=== PATIENT | male | born 1970 | race Caucasian/White ===

== ENCOUNTER 2017-07-28 08:21 | Inpatient (IN) | payer MEDICAID ==
[~2017-07-28 08:21] MED LIST: ASPIRIN EC 325 MG TAB PO ONE; DIAZEPAM 5 MG TAB PO ONE; FAMOTIDINE 20 MG TAB PO ONE; NS 1,000 ML IV ONE; diphenhydrAMINE 25 MG CAP PO ONE
--- NOTE | 2017-07-28 08:49 | CPEKG ---
Heart Rate: 71 RR Interval: 845 P-R Interval: 168 QRSD Interval: 102 QT Interval: 420 QTC Interval: 457 P [place]: 76 QRS [place]: 60 T Wave [place]: 70 EKG Severity - ABNORMAL ECG - EKG Impression: SINUS RHYTHM EKG Impression: VENTRICULAR PREMATURE COMPLEX EKG Impression: LEFT VENTRICULAR HYPERTROPHY EKG Impression: BORDERLINE INFERIOR Q WAVES Electronically Signed By: Ken Mendoza 28-Jul-2017 09:44:20
[2017-07-28] MEDS ORDERED: FAMOTIDINE 20 MG TAB ONE (09:12)
[2017-07-28] MEDS ORDERED: diphenhydrAMINE 25 MG CAP PO ONE (09:12)
[2017-07-28] MEDS ORDERED: ASPIRIN EC 325 MG TAB PO ONE (09:12)
[2017-07-28] MEDS ORDERED: DIAZEPAM 5 MG TAB ONE (09:13)
[2017-07-28 09:17] LABS: PLATELET COUNT 257 10^3/uL (150-400)
[2017-07-28 09:27] LABS: INR 1.06 (0.83-1.16)
[2017-07-28] MEDS ORDERED: LIDOCAINE 1% 300 MG/30 ML SDV ONE (09:29)
[2017-07-28] MEDS ORDERED: fentaNYL 100 MCG/2 ML INJ ONE (09:30)
[2017-07-28] MEDS ORDERED: MIDAZOLAM 2 MG/2 ML VIAL ONE (09:30)
[2017-07-28] MEDS ORDERED: IOPAMIDOL (ISOVUE-370) 150 ML BTL IV ONE ×2 (09:31→11:01)
--- NOTE | 2017-07-28 09:34 | PDGENHP ---
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 Depression. Coronary artery disease as above. Gout. Hypertension. Hyperlipidemia. Restless leg syndrome. Relevant Physical Exam: Blood pressure 110/70 heart rate 60. No JVP at 90 degrees. Chest was clear to auscultation percussion. Cardiac exam revealed a regular rate and rhythm. Palpable thrill right forearm. Absent left radial artery pulse. +2 left radial pulse. +2 right and left femoral artery pulse. No peripheral edema. Alert and oriented without facial droop. No focal neurologic findings. Cardiorespiratory Assessment: Severe coronary disease status post 6 vessel bypass grafting in 2013 including a OLIVARES, free radial artery graft based on examination here for risk stratification prior to surgery.
--- NOTE | 2017-07-28 09:35 | PDPROPOC ---
Sedation Plan of Care Sedation Plan of Care: vital signs stable, mental status noted, patient educated of risks, benefits, alternatives, patient can tolerate sedation ASA Classification: ASA 2 Planned drugs: fentanyl, midazolam Mallampati Score: Class 1 Mallampati Reference Image: Patient passed 3-3-2 rule?: Yes
--- NOTE | 2017-07-28 11:18 | PDDXCAT ---
Diagnostic Cath Note - . Date: 07/28/17 Industrial Designer: Reji Indication: other (Moderate abnormal stress test with inferior scar, reduced LV function, preoperative assessment) - Procedure Access: right groin Procedure: left heart catheterization, coronary angiography, left ventriculogram , vein graft injection, OLIVARES injection - Materials Left Heart Cath size: 6F Left Heart Cath materials: JL4.0, JR4.0, COTY, pigtail, other (AR1) - Findings-Left Heart Catheterization LM: 40% distal stenosis LAD: 100% occluded after principal diagonal LCX: Obtuse marginal branch is 100% occluded. Diffuse luminal irregularities without focal stenosis around the AV groove. Collaterals to the distal right coronary RCA: 100% occluded at the origin with right to right bridging collaterals rSVG: Patent to the distal right coronary, patent to obtuse marginal 1 and 2. 2 occluded occluded grafts OLIVARES: Patent to a small LAD. LVEF: 20 mm of mercury Wall motion: Not assessed, aortic root showed patent vein graft to the inferior lateral wall with a patent mammary artery. Complications: None Estimated blood loss: <50ml Closure method: Angioseal Assessment: 1.Severe multivessel coronary artery disease. 2. Complete revascularization with patent mammary artery to the LAD, patent vein graft to the lateral and inferior owen. 3. Elevated filling pressures in the setting of renal insufficiency. 4. No contraindications to surgery identified by today' s study. Plan: Continued medical therapy. End-stage renal disease to be managed by the Nephrology Service with dialysis tomorrow. Patient was medicated with 2 mg Versed, 100 mcg of fentanyl, 25 mg of Benadryl I V. He received 125 cc of IV contrast.
[2017-07-28] MEDS ORDERED: LORazepam 0.5 MG TAB PO PRN (11:42)
[2017-07-28] MEDS ORDERED: HYDROCODONE/APAP 5/325 TAB PO PRN (11:42)
[2017-07-28] MEDS ORDERED: SEVELAMER CARBONATE 2.4 GM PO SCH (12:00)
[2017-07-28] MEDS ORDERED: SEVELAMER HCL 800 MG TAB PO SCH (12:00)
--- NOTE | 2017-07-28 15:19 | SOAPPROG ---
ZBIGNIEW Progress Note Assessment/Plan: Assessment/Plan: 47 Y M multiple comorbidities including CAD, ESRD on HD. Asked to see patient re: secondary hyperparathyroidism and need for subtotal parathyroidectomy. S/p heart catheterization. Patient known to us from prior visit in clinic. Asked to see by renal regarding parathyroid disease. Plan for HD tomorrow. Then, likely subtotal parathyroidectomy on . Discussed risks and options in the past. Spoke with today but patient quite sleepy after procedure so will need to return to discuss further. D/w'ed Dr. Amaya. 07/28/17 15:14 Objective: Vital Signs Temp Pulse Resp BP Pulse Ox 35.9 C L 74 11 L 122/72 H 80 L 07/28/17 15:11 07/28/17 15:11 07/28/17 15:11 07/28/17 15:11 07/28/17 15:11 Laboratory Results 07/28/17 09:10 07/28/17 09:10 PT 14.0 SEC (12.0-15.0) 07/28/17 09:10 INR 1.06 (0.83-1.16) 07/28/17 09:10 ICD10 Worksheet Patient Problems: Problems Problem Status Onset Abnormal exercise myocardial perfusion study Acute Coronary artery disease Acute ESRD (end stage renal disease) on dialysis Acute Status post six vessel coronary artery bypass graft Acute
[2017-07-28] MEDS: SEVELAMER CARBONATE PO SCH ×2 (16:09→19:04)
[2017-07-28] MEDS: PRAMIPEXOLE 0.125 MG TAB PO SCH ×2 (16:42→22:39)
[2017-07-28] MEDS: FUROSEMIDE 80 MG TAB PO SCH (16:42)
[2017-07-28] MEDS: CARVEDILOL 25 MG TAB PO SCH (19:04)
--- NOTE | 2017-07-28 19:32 | GHP ---
[f rep st] HISTORY AND PHYSICAL DATE OF ADMISSION: 07/28/2017 CHIEF COMPLAINT: Needs surgery. 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 The patie nt has secondary hyperparathyroid related to his end-stage renal disease, and there is a plan for tony gical parathyroidectomy in the coming days. Given patient's history of severe CAD, he was brought in for preop cardiac clearance, and underwent cardiac catheterization earlier in the day today. At the time of my evaluation, patient is quite somnolent, though his is present and was able to provid e some of the history. The patient has not had any acute complaints recently, per her report. She i s concerned that he will not want to remain in the hospital for too long, but did agree that they wou ld prefer to stay in the hospital to get surgery completed, rather than have to come back as an outpa tient. PAST MEDICAL HISTORY: 1. End-stage renal disease secondary to IgA nephropathy. 2. Severe multivessel coronary artery disease. 3. Depression. 4. Gout. 5. Hypertension. 6. Hyperlipidemia. PAST SURGICAL HISTORY: 1. CABG x6. 2. Fistula formation. SOCIAL HISTORY: Patient is accompanied by his . He is a nonsmoker. FAMILY HISTORY: This is not available, given this patient's somnolence, and is not available per [facility] rt review. REVIEW OF SYSTEMS: Per patient's , this was negative prior to his catheterization but, again, th e patient is quite somnolent post catheterization. MEDICATIONS: 1. Amlodipine. 2. Carvedilol. 3. Atorvastatin. 4. Aspirin. 5. Losartan. 6. Lorazepam. 7. [place]. 8. Lasix. 9. Pyridoxine. 10. Pramipexole. 11. Paroxetine. 12. Sevelamer. 13. Cinacalcet. 14. Calcitriol. 15. Labetalol. ALLERGIES: Include lisinopril. PHYSICAL EXAMINATION: VITAL SIGNS: BP 140/75, heart rate 71, respiratory rate 16, O2 saturation 97% on 3 L, temperature is 36.6. GENERAL APPEARANCE: This is a well-developed, well-nourished man. He is somnolent, but easily arousable. EYES: Anicteric. HENT: Oropharynx clear. CARDIOVASCULAR: Regular rate and rhythm. No MRG. PULMONARY: CTA bilater ally to anterior exam. ABDOMEN: Soft, nontender. Positive bowel sounds. EXTREMITIES: No clubbing , cyanosis, or edema. There is a right upper extremity fistula with bruit and palpable thrill. SKIN: Warm, dry, well perfused. NEURO/PSYCH: Oriented appropriate, pleasant. CLINICAL DATA: Labs notable for hemoglobin of 10, hematocrit of 29.8. Coags are unremarkable. Chem istries notable for a creatinine of 9.7. ASSESSMENT AND PLAN: This is a 47-year-old man with past medical history of end-stage renal disease and severe coronary artery disease, presenting for preop management for planned parathyroidectomy. 1. Secondary hyperparathyroidism. Again, the patient is planned for parathyroidectomy, likely to be performed on . He has been brought into the hospital for preop evaluation, including cardia c clearance. Catheterization went well, with severe multivessel disease, but also noted for complete revascularization and patent mammary artery graft to the LAD. Usual medications will be continued. Appreciate Cardiology involvement. 2. End-stage renal disease. He will be continued on his usual dialysis regimen, including hemodialy sis to be performed in-house tomorrow. His other medications will be continued. Dr. Muñoz is aw are of his hospitalization, and will follow while in house. 3. Severe coronary artery disease. As per above. Continue his usual medications. 4. Hypertension. This is currently reasonably well controlled. We will continue his home medicatio ns that include amlodipine, labetalol, carvedilol, losartan, and Lasix, as well as fluid management v ia hemodialysis. 5. Hyperlipidemia. The patient is on atorvastatin. Lipid panel obtained here notable for an LDL of 178. DISPOSITION: Inpatient status. Given need for surgical intervention, patient will require greater t ambriz a 48-hour stay. The patient is new to my care. Old records reviewed and summarized as per HPI and past medical histo ry. Further history obtained from patient's , present at bedside. Care plan reviewed with Merrick nunoogjovita, including plans for Medicine to take over as primary. /[id number]/MODL
[2017-07-28] MEDS: LABETALOL HCL 200 MG TAB PO SCH (22:40)
[2017-07-29 04:42] LABS: PLATELET COUNT 259 10^3/uL (150-400)
[2017-07-29] MEDS ORDERED: NON-FORMULARY NEW DRUG (Paroxetine Hcl [Paxil] 40 MG) PO SCH (09:00)
[2017-07-29] MEDS ORDERED: ASPIRIN 81 MG CHEWABLE TAB PO SCH (09:00)
[2017-07-29] MEDS ORDERED: CALCITRIOL 0.25 MCG CAP PO SCH (09:00)
[2017-07-29] MEDS ORDERED: NON-FORMULARY NEW DRUG (Losartan Potassium [Losartan Potassium] 100 MG) PO SCH (09:00)
[2017-07-29] MEDS ORDERED: CINACALCET HCL 30 MG TAB PO SCH (09:00)
[2017-07-29] MEDS ORDERED: CINACALCET HCL 60 MG PO SCH (09:00)
--- NOTE | 2017-07-29 09:23 | SOAPPROG ---
ZBIGNIEW Progress Note Assessment/Plan: Assessment: 1. ESRD K High. He does have this chronically. Tele looks ok. HD today using catheter. 2. Hyperparathyroidism For 3.5/4 parathyroidectomy. Expect significant hungry bone syndrome, and he will likely need IV calcium drip for some days postop. He has been getting calcitriol as an outpatient. He will need to go on a calcium drip immediately post op. I reviewed anti platelet meds with Dr. Mendoza and Dr. Amaya. They are being held. 3. Social Issues Patient is homeless. Will review with case management. Plan: 07/29/17 09:16 07/29/17 09:23 Subjective: No complaints Objective: Vital Signs Temp Pulse Resp BP Pulse Ox 36.6 C 63 13 132/72 H 96 07/29/17 07:59 07/29/17 07:59 07/29/17 07:59 07/29/17 07:59 07/29/17 07:59 Laboratory Results 07/29/17 03:35 07/29/17 03:35 07/28/17 07/29/17 07/30/17 05:59 05:59 05:59 Intake Total 1150 Balance 1150 PT 14.0 SEC (12.0-15.0) 07/28/17 09:10 INR 1.06 (0.83-1.16) 07/28/17 09:10 Physical Exam - Physical Exam General Appearance: no apparent distress Respiratory: lungs clear Cardiac/Chest: regular rate, rhythm, systolic murmur Extremities: normal inspection Neuro/Psych: alert, oriented x 3 ICD10 Worksheet Patient Problems: Problems Problem Status Onset Abnormal exercise myocardial perfusion study Acute Coronary artery disease Acute ESRD (end stage renal disease) on dialysis Acute Status post six vessel coronary artery bypass graft Acute
--- NOTE | 2017-07-29 10:10 | PDMN ---
Medical Necessity Medical necessity: change to IP; los>2mn for secondary hyperparathyroidism r/t ESRD; admit for cardiac clearance and parathyroidectomy, HD; other comorbidities: CAD s/p CABG x 6, HTN, HLD, gout and depression; per order and hospitalist H&P 07/28/17
[2017-07-29] MEDS: CARVEDILOL 25 MG TAB PO SCH ×2 (10:39→19:19)
[2017-07-29] MEDS: CALCITRIOL 0.25 MCG CAP PO SCH ×2 (10:39→21:33)
[2017-07-29] MEDS: LABETALOL HCL 200 MG TAB PO SCH ×2 (10:40→21:33)
[2017-07-29] MEDS: PRAMIPEXOLE 0.125 MG TAB PO SCH ×3 (10:40→21:33)
[2017-07-29] MEDS: LOSARTAN POTASSIUM 50 MG TAB PO SCH (10:40)
[2017-07-29] MEDS: FUROSEMIDE 80 MG TAB PO SCH ×2 (10:40→16:43)
[2017-07-29] MEDS: PARoxetine HCL 20 MG TAB PO SCH (10:41)
[2017-07-29] MEDS: ATORVASTATIN CALCIUM 40 MG TAB PO SCH (10:41)
[2017-07-29] MEDS: PYRIDOXINE HCL 100 MG TAB PO SCH (10:41)
[2017-07-29] MEDS: SEVELAMER CARBONATE PO SCH ×3 (10:42→18:34)
--- NOTE | 2017-07-29 13:10 | PDCARPN ---
Cardiology Progress Note Chief Complaint: Patient reports fatigue, but has no cardiovascular complaints. Assessment/Plan: Assessment: 47-year-old male with past history of CAD, with previous bypass surgery 6 vessels in 2013 at [facility], end-stage renal disease with IgA neuropathy , hypertension, hyperlipidemia who recently discovered hyperparathyroidism, with plan of parathyroidectomy. Pre cardiac surgical evaluation did show ischemia off of the stress testing. Patient underwent cardiac catheterization with Dr. Mendoza yesterday. Showing severe multivessel disease with complete revascularization with patent OLIVARES to the LAD, patent SVGs to lateral inferior owen. Is felt there was no cardiac contraindication for him to proceed with his upcoming surgery. Today: Patient reporting no episodes of chest pain, shortness of breath, or symptoms suggesting of ischemia. He has remained in sinus rhythm with no malignant arrhythmias or pauses overnight. Noted to have a potassium of 6.4 today. Creatinine of 11.4 Plan: 1. CAD: Recent catheterization showing total revascularization with grafts. No cardiac contraindication for patient proceed with this necessary nonvascular , non thoracic surgery. His aspirin therapy is being held. Patient recommended to take beta-irving all way up today surgery. Patient is on secondary risk prevention with atorvastatin. 2. End-stage renal disease: Patient's potassium level noted to be 6.4 today. He has been seen by Dr. Muñoz of Nephrology. He is scheduled to undergo hemodialysis today. No arrhythmias noted. 3. Hyperparathyroidism: Plan on parathyroidectomy to be done by Dr. Amaya tomorrow. 4. Hypertension: Patient's blood pressure appears to be well controlled on home medication regime. No changes at this time. Will defer to Nephrology with consideration of discontinuing losartan due to patient's hyperkalemia. 5. Hyperlipidemia: Patient on atorvastatin for secondary risk prevention. Appreciate Dr. Tate and hospitalist services assuming to be primary admission providers 07/29/17 13:07 Subjective: Patient reports no chest pain or pressure. Reports no shortness of breath. Denies of any palpitations, lightheadedness, orthopnea, PND, near-syncope or syncopal events. Reviewed/Discussed With: hospitalist (Dr Irby), other (Dr Isaacs) Objective: Vital Signs (8 Hrs) Temp Pulse Resp BP Pulse Ox 07/29/17 11:26 36.7 C 73 13 124/71 H 98 05/09/18 07:59 36.6 C 63 13 132/72 H 96 Intake/Output (24 Hrs) 07/28/17 07/29/17 07/30/17 05:59 05:59 05:59 Intake Total 1150 750 Balance 1150 750 Intake: Oral (ml) 1000 750 IV Intake (ml) 150 Other: Weight 78.3 kg Result Diagrams: 07/29/17 03:35 07/29/17 03:35 - Physical Exam Constitutional: WDWN, no apparent distress Ears, Nose, Mouth, Throat: moist mucous membranes Cardiovascular: regular rate and rhythm, jugular vein distention (5-6 Cm above sternal notch.), pulses symmetric bilat Peripheral Pulses: 1+: dorsalis-pedis (R), dorsalis-pedis (L), 2+: carotid (R), carotid (L) Respiratory: other ( Diminished in bases, no rhonchi, rales, or wheezing noted. No accessary muscle use, no intercostal muscle retraction noted) Gastrointestinal: normoactive bowel sounds Skin: warm, other ( right groin site, catheter insertion site, with no redness, swelling, drainage, ecchymosis, or hematoma. No auscultated bruit over site.), No no edema ( +1 peripheral edema bilateral lower extremities to knees) Psychiatric: cooperative, following commands ICD10 Worksheet Patient Problems: Problems Problem Status Onset ESRD (end stage renal disease) on dialysis Acute Abnormal exercise myocardial perfusion study Acute Status post six vessel coronary artery bypass graft Acute Coronary artery disease Acute
--- NOTE | 2017-07-29 16:14 | HOSPPROG ---
Hospitalist Progress Note Assessment/Plan: 47 yo F w esrd here for pre surgery cath. cad: cath w patent OLIVARES- LAD per cardiology, no contraindication to surgery esrd: HD today hyperkalemia: HD today hyperparathyroidism: parathyroidectomy tomorrow w dr friedman dispo: inpt Subjective: case d/w dr cunningham Objective: Vital Signs Temp Pulse Resp BP Pulse Ox 36.7 C 73 13 124/71 H 98 07/29/17 11:26 07/29/17 11:26 07/29/17 11:26 07/29/17 11:26 07/29/17 11:26 Laboratory Results 07/29/17 03:35 07/29/17 03:35 07/28/17 07/29/17 07/30/17 05:59 05:59 05:59 Intake Total 1150 750 Balance 1150 750 PT 14.0 SEC (12.0-15.0) 07/28/17 09:10 INR 1.06 (0.83-1.16) 07/28/17 09:10 - Physical Exam Constitutional: no apparent distress, appears nourished Eyes: PERRL, anicteric sclera Ears, Nose, Mouth, Throat: moist mucous membranes, hearing normal Cardiovascular: regular rate and rhythym, no murmur, rub, or gallop Respiratory: no respiratory distress, no rales or rhonchi Gastrointestinal: normoactive bowel sounds, soft, non-tender abdomen Genitourinary: no bladder fullness, No diop in urethra Skin: warm, normal color Musculoskeletal: full muscle strength Neurologic: AAOx3 ICD10 Worksheet Patient Problems: Problems Problem Status Onset Abnormal exercise myocardial perfusion study Acute Coronary artery disease Acute ESRD (end stage renal disease) on dialysis Acute Status post six vessel coronary artery bypass graft Acute
--- NOTE | 2017-07-29 16:44 | ASMTCASEMG ---
Living Arrangements What is your living Answers: With Spouse arrangement? Who do you live with? Type Of Residence What kind of residence do Answers: Apartment you live in? Discharge Plan Comments Coordination Status Comments Notes: CM spoke w/ Dr. Muñoz and Ankita regarding d/c POC. Pt is having a parathyoidectomy tomorrow. Pt had a CATH yesterday. PT has been ordered and awaiting recommendations. [facility] in [place]. CM to follow up with Kelly, his delinquency prevention social worker (P#: [phone]). CM to follow. Plan: TBD Date Signed: 07/29/2017 04:44 PM Electronically Signed By:SYLVIA Fritz
[2017-07-29] MEDS ORDERED: HEPARIN 50,000 UNIT/10 ML VIAL ONE (19:03)
[2017-07-30 04:13] LABS: PLATELET COUNT 254 10^3/uL (150-400)
[2017-07-30] MEDS ORDERED: ceFAZolin 2 GM/SWFI 2 GM/20 ML SYR IVP ONE ×2 (06:00→08:15)
[2017-07-30] MEDS ORDERED: THROMBIN (BOVINE) 5,000 UNIT VIAL TP ONE (07:19)
[2017-07-30] MEDS ORDERED: BACITRACIN ZINC 14.2 GM OINTTUBE TP ONE (07:19)
[2017-07-30] MEDS ORDERED: BUPIVACAINE 0.5% 30 ML SDV ONE (07:20)
[2017-07-30] MEDS ORDERED: EPINEPHrine 1 MG/ML INJ ONE (07:20)
[2017-07-30] MEDS ORDERED: fentaNYL 100 MCG/2 ML INJ ONE ×2 (07:55→08:57)
[2017-07-30] MEDS ORDERED: PROPOFOL 200 MG/20 ML VIAL ONE (07:55)
[2017-07-30] MEDS ORDERED: MIDAZOLAM 2 MG/2 ML VIAL ONE ×2 (07:55)
[2017-07-30] MEDS ORDERED: ALBUMIN 5% 250 ML BOTTLE IV ONE (08:01)
[2017-07-30] MEDS ORDERED: CISATRACURIUM BESYLATE 20 MG/10 ML VIAL IV ONE (08:38)
[2017-07-30] MEDS ORDERED: LIDOCAINE HCL 160 MG/4 ML LTA KIT TP ONE (08:38)
[2017-07-30] MEDS ORDERED: SUGAMMADEX SODIUM 200 MG/2 ML VIAL IVP ONE (08:38)
[2017-07-30] MEDS ORDERED: LIDOCAINE 2% 5 ML SDV ONE (08:38)
[2017-07-30] MEDS ORDERED: VASOPRESSIN 20 UNIT/ML VIAL ONE ×2 (08:38→09:09)
[2017-07-30] MEDS ORDERED: ONDANSETRON 4 MG/2 ML VIAL ONE (08:38)
--- NOTE | 2017-07-30 08:43 | PDANEPAE ---
ANE Past Medical History - Pulmonary History Hx Oxygen in Use at Home: No Hx Sleep Apnea: No Sleep Apnea Screening Result - Last Documented: Positive ANE Review of Systems Review of Systems: ANE Patient History - Allergies Allergies/Adverse Reactions: lisinopril Allergy (Severe, Verified 07/27/17 15:15) Swelling/neck,face,throat - Home Medications Home Medications: Aspirin [Aspirin 81mg (*)] 81 mg PO DAILY 07/27/17 [Last Taken 07/27/17 07:00] Atorvastatin Calcium [Lipitor 40 mg (*)] 40 mg PO DAILY 07/27/17 [Last Taken 10/07 07:00] Calcitriol [Calcitriol (*)] 0.5 mcg PO MOWEFR 07/27/17 [Last Taken 07/27/17 08: 00] Carvedilol [Coreg (*)] 25 mg PO BIDMEAL 07/27/17 [Last Taken 07/27/17 21:00] Cinacalcet HCl [Sensipar] 60 mg PO DAILY 07/27/17 [Last Taken 07/27/17 21:00] Furosemide [Lasix 80 MG (*)] 80 mg PO BIDDIUR 07/27/17 [Last Taken 07/27/17 06: 30] Hydrocodone/APAP 5/325 [[place] 5/325 (*)] 1 tab PO Q6 PRN 07/27/17 [Last Taken 06:30] LORazepam [Ativan (*)] 0.5 mg PO DAILY PRN 07/27/17 [Last Taken 07/03/17 08:00] Labetalol HCl [Trandate 200 mg (*)] 200 mg PO BID 07/27/17 [Last Taken 07/28/17 07:30] Losartan Potassium 100 mg PO DAILY 07/27/17 [Last Taken 07/28/17 07:30] PARoxetine HCL [Paxil] 40 mg PO DAILY 07/27/17 [Last Taken 07/28/17 07:30] Pramipexole Di-HCl [Mirapex 0.125 mg (*)] 0.125 mg PO TID 07/27/17 [Last Taken 07/27/17 07:00] Pyridoxine HCl [Vitamin B-6 100 mg (*)] 100 mg PO DAILY 07/27/17 [Last Taken 10/07 07:00] Sevelamer Carbonate [Renvela] 2.4 gm PO TIDMEAL 07/27/17 [Last Taken 07/27/17 21 :00] amLODIPine BESYLATE [Norvasc 10 mg (*)] 10 mg PO DAILY 07/27/17 [Last Taken 11/07 07:30] - NPO status NPO Since - Liquids (Date): 07/30/17 NPO Since - Liquids (Time): 00:01 NPO Since - Solids (Date): 07/30/17 NPO Since - Solids (Time): 00:01 - Smoking Hx Smoking Status: Current every day smoker ANE Labs/Vital Signs - Labs Result Diagrams: 07/30/17 03:12 07/30/17 07:35 - Vital Signs Blood Pressure: 119/71 Heart Rate: 68 Respiratory Rate: 16 O2 Sat (%): 91 Height: 175 cm Weight: 74.4 kg ANE Physical Exam - Airway Neck exam: FROM Mallampati Score: Class 1 Mouth exam: poor dentition - Pulmonary Pulmonary: no rales or rhonchi, clear to auscultation - Cardiovascular Cardiovascular: regular rate and rhythym, no murmur, rub, or gallop - ASA Status ASA Status: IV ANE Anesthesia Plan Anesthesia Plan: general endotracheal anesthesia Lines/Monitors: additional IV
[2017-07-30] MEDS ORDERED: ALBUTEROL 3 ML DEYVIAL IH PRN (08:50)
[2017-07-30] MEDS ORDERED: ONDANSETRON 4 MG/2 ML VIAL IVP PRN (08:50)
[2017-07-30] MEDS ORDERED: NALOXONE HCL 0.4 MG/ML INJ IVP PRN (08:50)
--- NOTE | 2017-07-30 09:29 | SOAPPROG ---
ZBIGNIEW Progress Note Assessment/Plan: Assessment: (Patient in OR) 1. ESRD Next HD tomorrow. Will recheck K postoperatively. 2. Hyperparathyroidism For 3.5/4 parathyroidectomy today. He has been on calcitriol as outpatient, and received high doses yesterday. He will have hungry bone syndrome. He will need IV calcium drip and frequent checks post op. 3. Social Issues 4. HTN This has been at goal. Subjective: patient in or Objective: Vital Signs Temp Pulse Resp BP Pulse Ox 36.6 C 68 16 119/71 91 L 07/30/17 08:01 07/30/17 08:43 07/30/17 08:43 07/30/17 08:43 07/30/17 08:43 Laboratory Results 07/30/17 03:12 07/30/17 07:35 07/29/17 07/30/17 07/31/17 05:59 05:59 05:59 Intake Total 1150 1290 Output Total 2325 Balance 1150 -1035 PT 14.0 SEC (12.0-15.0) 07/28/17 09:10 INR 1.06 (0.83-1.16) 07/28/17 09:10 - Time Spent With Patient Time Spent With Patient: Patient in or ICD10 Worksheet Patient Problems: Problems Problem Status Onset Abnormal exercise myocardial perfusion study Acute Coronary artery disease Acute ESRD (end stage renal disease) on dialysis Acute Status post six vessel coronary artery bypass graft Acute
--- NOTE | 2017-07-30 10:05 | POSTOPPROG ---
Post Op Note Date of Operation: 07/30/17 Surgeon: Artie Amaya Endless Bed Drum Sander: Fiordaliza Anesthesiologist: Corine Anesthesia: GET(General Endotracheal) Pre-op Diagnosis: Secondary hyperparathyroidism Post-op Diagnosis: same Indication: same Procedure: Parathyroidectomy, R upper and lower poles, L lower and partial upper pole Findings: Enlarged parathyroid glands Inf/Abcess present in the surg proc area at time of surgery?: No Depth: Deep Incisional (Fascial) EBL: Minimal Specimen(s): 1. R upper pole 2. R lower pole 3 L lower pole 4. L partial upper pole
[2017-07-30] MEDS ORDERED: HYDROmorphONE/DILAUDID 1 MG/ML INJ IVP PRN (10:12)
[2017-07-30] MEDS ORDERED: HYDROmorphone HCL/NS 0.5 MG/ML SYR IVP PRN (10:13)
--- NOTE | 2017-07-30 10:18 | POSTANESTH ---
Post Anesthetic Evaluation Cardiovascular Status: Normal, Stable, Similar to Pre-Op Cond Respiratory Status: Normal, Stable, Similar to Pre-op Cond. Level of Consciousness/Mental Status: Can Participate in Eval Pain Control: Adequate, Prn Tx Ordered Nausea/Vomiting Control: Adequate, Prn Tx Ordered Complications Possibly Related to Anesthesia: None Noted
[2017-07-30] MEDS ORDERED: CALCIUM GLUCONATE 2 GM in D5W 50 ML IV ONE (11:27)
[2017-07-30] MEDS: SEVELAMER CARBONATE PO SCH ×3 (11:38→18:42)
--- NOTE | 2017-07-30 13:42 | HOSPPROG ---
Hospitalist Progress Note Assessment/Plan: 47 yo F w esrd here for pre surgery cath. cad: cath w patent OLIVARES- LAD per cardiology, no contraindication to surgery esrd: HD tomorrow hyperkalemia: HD tomorrow hyperparathyroidism: parathyroidectomy today calcimu supplementation started iCa at 6 pm dispo: inpt Subjective: case d/w dr friedman. parathyroidectomy today Objective: Vital Signs Temp Pulse Resp BP Pulse Ox 36.7 C 65 18 124/66 H 94 07/30/17 11:26 07/30/17 11:26 07/30/17 11:26 07/30/17 11:26 07/30/17 11:26 Laboratory Results 07/30/17 03:12 07/29/17 07/30/17 07/31/17 05:59 05:59 05:59 Intake Total 1150 1290 150 Output Total 2325 Balance 1150 -1035 150 PT 14.0 SEC (12.0-15.0) 07/28/17 09:10 INR 1.06 (0.83-1.16) 07/28/17 09:10 - Physical Exam Constitutional: no apparent distress, appears nourished Eyes: PERRL, anicteric sclera Ears, Nose, Mouth, Throat: moist mucous membranes, hearing normal, other ( incision c/d/i) Cardiovascular: regular rate and rhythym, no murmur, rub, or gallop Respiratory: no respiratory distress, no rales or rhonchi Gastrointestinal: normoactive bowel sounds, soft, non-tender abdomen Genitourinary: no bladder fullness, No diop in urethra Skin: warm, normal color Musculoskeletal: full muscle strength, no muscle tenderness Neurologic: AAOx3 Psychiatric: interacting appropriately Lymph, Heme, Immunologic: no cervical LAD ICD10 Worksheet Patient Problems: Problems Problem Status Onset Abnormal exercise myocardial perfusion study Acute Coronary artery disease Acute ESRD (end stage renal disease) on dialysis Acute Status post six vessel coronary artery bypass graft Acute
[2017-07-30] MEDS: CALCIUM GLUCONATE 10 GM in D5W 1,000 ML IV SCH (14:10)
[2017-07-30] MEDS: PYRIDOXINE HCL 100 MG TAB PO SCH (17:18)
[2017-07-30] MEDS: ATORVASTATIN CALCIUM 40 MG TAB PO SCH (17:20)
[2017-07-30] MEDS: PARoxetine HCL 20 MG TAB PO SCH (17:20)
[2017-07-30] MEDS: LOSARTAN POTASSIUM 50 MG TAB PO SCH (17:23)
[2017-07-30] MEDS: CARVEDILOL 25 MG TAB PO SCH ×2 (17:23)
[2017-07-30] MEDS: CALCITRIOL 0.25 MCG CAP PO SCH ×2 (17:24→21:13)
[2017-07-30] MEDS: LABETALOL HCL 200 MG TAB PO SCH ×2 (17:25→21:14)
[2017-07-30] MEDS: FUROSEMIDE 80 MG TAB PO SCH ×2 (17:25)
[2017-07-30] MEDS: PRAMIPEXOLE 0.125 MG TAB PO SCH ×3 (17:25→21:15)
[2017-07-31 04:25] LABS: PLATELET COUNT 217 10^3/uL (150-400)
--- NOTE | 2017-07-31 08:21 | SOAPPROG ---
[facility] Progress Note Assessment/Plan: Assessment: 1. ESRD- [facility] MWF -HD today- on 3Ca bath -using TDC- has AVF that is reportedly immature 2. Hyperparathyroidism -s/p 3.5/ parathyroidectomy 07/30 (Dr. Amaya) - He has been on calcitriol as outpatient and he will have hungry bone syndrome - will check iCA q6 hours. -high dose calcitriol and calcium gtt for now- I left parameters for RN to call , most recent ICa at goal (will check q6 hours for now- sooner if symptoms of numbness/tingling or begins to drop). Will likely start po calcium soon and try to wean off calcium gtt tomorrow. -his phos is high currently and using Ca Acetate binder- need to follow 3. HTN- good control 4. Anemia CKD -Hb at goal -Epo 10,000 units weekly- dose today 5. HyperK- K 5.6 -run 2k bath, low k diet when po 5. Difficult social situation Dr. Stewart medication coordinator for weekend Giulia Zurita MD [facility] [phone] 07/31/17 08:57 Subjective: Pt seen on dialysis at 08:35. Using RIJ TDC, 2K/3Ca bath, goal UF 2 kg. On calcium gtt. Denies numbness/tingling. Pain controlled. No sob, n/v. Objective: Vital Signs Temp Pulse Resp BP Pulse Ox 36.7 C 68 18 114/63 93 07/31/17 04:00 07/31/17 04:00 07/31/17 04:00 07/31/17 04:00 07/31/17 04:00 Laboratory Results 07/31/17 03:16 07/31/17 03:16 07/30/17 07/31/17 08/01/17 05:59 05:59 05:59 Intake Total 1290 1250 Output Total 2325 Balance -1035 1250 PT 14.0 SEC (12.0-15.0) 07/28/17 09:10 INR 1.06 (0.83-1.16) 07/28/17 09:10 Physical Exam - Physical Exam General Appearance: alert, no apparent distress EENT: other (mmm) Neck: supple, other (surgical incision c/d/i) Respiratory: lungs clear Cardiac/Chest: regular rate, rhythm Abdomen: normal bowel sounds, non-tender, soft Extremities: other (no edema) Neuro/Psych: alert, oriented x 3 ICD10 Worksheet Patient Problems: Problems Problem Status Onset Abnormal exercise myocardial perfusion study Acute Coronary artery disease Acute ESRD (end stage renal disease) on dialysis Acute Status post six vessel coronary artery bypass graft Acute
[2017-07-31] MEDS ORDERED: THROMBIN (BOVINE) 5,000 UNIT VIAL TP ONE (08:59)
[2017-07-31] MEDS ORDERED: THROMBIN (BOVINE) 20,000 UNIT SPRAY TP ONE (08:59)
[2017-07-31] MEDS ORDERED: PROTAMINE SULFATE 50 MG/5 ML VIAL IVP ONE (09:00)
[2017-07-31] MEDS ORDERED: BUPIVACAINE 0.5% 30 ML SDV ONE (09:00)
[2017-07-31] MEDS ORDERED: EPOETIN ALFA 10,000 UNIT/ML VIAL SC SCH (09:00)
[2017-07-31] MEDS ORDERED: PAPAVERINE HCL 60 MG/2 ML SDV ONE (09:01)
[2017-07-31] MEDS ORDERED: ceFAZolin 2 GM/DEXTROSE 100 ML IV ONE (11:00)
[2017-07-31] MEDS ORDERED: ceFAZolin 2 GM/SWFI 2 GM/20 ML SYR IVP ONE (11:00)
--- NOTE | 2017-07-31 11:40 | PDCARPN ---
Cardiology Progress Note Chief Complaint: Patient reports he would like to go home. Assessment/Plan: Assessment: 47-year-old male with past history of CAD, with previous bypass surgery 6 vessels in 2013 at [facility], end-stage renal disease with IgA neuropathy , hypertension, hyperlipidemia who recently discovered hyperparathyroidism, with plan of parathyroidectomy. Pre cardiac surgical evaluation did show ischemia off of the stress testing. Patient underwent cardiac catheterization with Dr. Mendoza yesterday. Showing severe multivessel disease with complete revascularization with patent OLIVARES to the LAD, patent SVGs to lateral inferior owen. Is felt there was no cardiac contraindication for him to proceed with his upcoming surgery. Patient reports no chest pain or symptoms suggesting of ischemia today. Status post 1 day postop from parathyroidectomy. Continuous cardiac monitoring showing sinus rhythm with occasional PVC, 1 couplet, no other malignant arrhythmias or pauses noted. A.m. laboratory studies showing potassium of 5.6. Ionized calcium is 1.12. Plan: 1. CAD: Recent catheterization showing total revascularization with grafts. Patient is noted to be on 2 beta-blockers of carvedilol and labetalol. Will discontinue labetalol. Aspirin therapy is currently on hold due to recent surgery. Should be resumed when deemed safe by surgery. 2. End-stage renal disease: Plan dialysis today. Potassium elevated at 5.6. Will defer to Nephrology on decision on continuation of Cozaar and diuretic therapy. 3. Hyperparathyroidism: 1 day postop parathyroidectomy. Ionized calcium being followed by Nephrology. 4. Hypertension: Patient's blood pressure appears to be well controlled on home medication regime. Med changes as above. 5. Hyperlipidemia: Patient on atorvastatin for secondary risk prevention. 6. Anemia: Mild drop in H&H postoperatively. Patient is on Procrit for chronic anemia. 07/31/17 11:37 Subjective: Denies of any chest pressure or pain. Reports no shortness of breath, difficulty swallowing , palpitations, lightheadedness, near-syncope, or edema. Reviewed/Discussed With: other (Dr Starr) Objective: Vital Signs (8 Hrs) Temp Pulse Resp BP Pulse Ox 07/31/17 04:00 36.7 C 68 18 114/63 93 Intake/Output (24 Hrs) 07/30/17 07/31/17 08/01/17 05:59 05:59 05:59 Intake Total 1290 1250 Output Total 2325 2000 Balance -1035 1250 -1999 Intake: Oral (ml) 1290 600 IV Intake (ml) 100 IV Infused (ml) 550 Calcium Gluconate 10 gm 500 In D5w 1,000 ml @ 50 mls/ hr IV CONT BEN Rx#: [id number] Calcium Gluconate 2 gm In 50 D5w 50 ml @ 140 mls/hr IV ONCE ONE Rx#: [id number] Output: Urine (ml) 325 Urinal 325 Dialysis Fluid Removed 1999 1999 Other: Weight 74.4 kg 75.7 kg Result Diagrams: 07/31/17 03:16 07/31/17 03:16 - Physical Exam Constitutional: no apparent distress Ears, Nose, Mouth, Throat: moist mucous membranes Cardiovascular: regular rate and rhythm, pulses symmetric bilat, No jugular vein distention, No carotid bruit Peripheral Pulses: 1+: dorsalis-pedis (R), dorsalis-pedis (L) Respiratory: other ( Lungs are clear to auscultation, no rhonchi, rales, or wheezing noted.) Gastrointestinal: normoactive bowel sounds Skin: warm, no edema, other ( Parathyroid incision, and anterior neck, incision without signs of infection. Surgical glued. continue on) Neurologic: AAOx3 Psychiatric: cooperative, following commands ICD10 Worksheet Patient Problems: Problems Problem Status Onset Abnormal exercise myocardial perfusion study Acute Coronary artery disease Acute ESRD (end stage renal disease) on dialysis Acute Status post six vessel coronary artery bypass graft Acute
[2017-07-31] MEDS ORDERED: HEPARIN 50,000 UNIT/10 ML VIAL ONE (11:45)
--- NOTE | 2017-07-31 13:25 | SOAPPROG ---
[facility]BIGNIEW Progress Note Assessment/Plan: Assessment: 47 y/o M with a history of ESRD and secondary hyperparathyroidism s/p 3.5/4 parathyroidectomy POD#1 Hungry bone syndrome: on calcium gluconate drip. ionized calcium draws every 6 hours. Ionized ca levels WNL. S: at bedside reporting that if pt is not discharged today, he will "get up and walk out of here". Does not want surgery today for parotid bx and LUE AVF revision. Pt denies numbness/tingling and pain. O: Alert Afebrile Neck: Incision cdi. Negative Chvostek sign. Approximately 2x2cm mass on inferior aspect of parotid gland. RRR No increased WOB LUE: AVF with good thrill. Plan: Discussed with pt and that pt should stay at least one more night due to risk of hypocalcemia and the need for IV calcium drip. Provided education that if pt leaves against our advice, he needs to take 4 TUMS tid for calcium supplementation. Follow up with Dr. Amaya in the office in one week. His bx and AVF revision can be set up as an out patient. Discussed with Dr. Amaya. 07/31/17 13:17 Objective: Vital Signs Temp Pulse Resp BP Pulse Ox 36.8 C 80 12 137/77 H 93 07/31/17 11:43 07/31/17 11:43 07/31/17 11:43 07/31/17 11:43 07/31/17 11:43 Laboratory Results 07/31/17 03:16 07/31/17 03:16 07/30/17 07/31/17 08/01/17 05:59 05:59 05:59 Intake Total 1290 1250 Output Total 2325 1999 Balance -1035 1250 -1999 PT 14.0 SEC (12.0-15.0) 07/28/17 09:10 INR 1.06 (0.83-1.16) 07/28/17 09:10 ICD10 Worksheet Patient Problems: Problems Problem Status Onset Abnormal exercise myocardial perfusion study Acute Coronary artery disease Acute ESRD (end stage renal disease) on dialysis Acute Status post six vessel coronary artery bypass graft Acute
[2017-07-31] MEDS: SEVELAMER CARBONATE PO SCH ×3 (14:35→17:22)
[2017-07-31] MEDS: LABETALOL HCL 200 MG TAB PO SCH (15:08)
[2017-07-31] MEDS: ATORVASTATIN CALCIUM 40 MG TAB PO SCH (15:11)
[2017-07-31] MEDS: CALCIUM ACETATE 667 MG CAP PO SCH ×2 (15:12→17:21)
[2017-07-31] MEDS: CARVEDILOL 25 MG TAB PO SCH ×2 (15:12→17:14)
[2017-07-31] MEDS: FUROSEMIDE 80 MG TAB PO SCH ×2 (15:12→17:14)
[2017-07-31] MEDS: LOSARTAN POTASSIUM 50 MG TAB PO SCH (15:12)
[2017-07-31] MEDS: PYRIDOXINE HCL 100 MG TAB PO SCH (15:12)
[2017-07-31] MEDS: PRAMIPEXOLE 0.125 MG TAB PO SCH ×3 (15:13→21:56)
[2017-07-31] MEDS: CALCITRIOL 0.25 MCG CAP PO SCH ×2 (15:13→21:54)
[2017-07-31] MEDS: PARoxetine HCL 20 MG TAB PO SCH (15:14)
--- NOTE | 2017-07-31 15:47 | ASMTCMCOM ---
CM Note CM Note Notes: Pts case discussed in tx rounds in the AM. CM met w/ pt and for dispo planning. Pt and are in between homes at this time. Pt and stays at their sons place of business and sometimes w/ their daughter. is in the process of reinstating her SSDI and hopes to eventually getting a place of their own. CM left a msg for Kelly, pts director of casework department at [facility]. is interested in signing up for [facility]. would like to be the contact and service clerks supervisor. Her phone number is [phone]. Referral made to [facility]. CM provided [facility]/ [facility] broch[facility]. Pt will not have any dc needs at this time. CM and discussed different ways to stay med compliant. CM available for changes. Plan: Independent Date Signed: 07/31/2017 03:46 PM Electronically Signed By:SYLVIA Fritz
[2017-07-31] MEDS: CALCIUM GLUCONATE 10 GM in D5W 1,000 ML IV SCH (18:45)
[2017-08-01 04:12] LABS: PLATELET COUNT 225 10^3/uL (150-400)
[2017-08-01] MEDS: CALCITRIOL 0.25 MCG CAP PO SCH (08:44)
[2017-08-01] MEDS: SEVELAMER CARBONATE PO SCH ×2 (08:44→11:57)
[2017-08-01] MEDS: PRAMIPEXOLE 0.125 MG TAB PO SCH (08:45)
[2017-08-01] MEDS: CARVEDILOL 25 MG TAB PO SCH (08:45)
[2017-08-01] MEDS: CALCIUM ACETATE 667 MG CAP PO SCH ×2 (08:45→11:57)
[2017-08-01] MEDS: PARoxetine HCL 20 MG TAB PO SCH (08:46)
[2017-08-01] MEDS: ATORVASTATIN CALCIUM 40 MG TAB PO SCH (08:46)
[2017-08-01] MEDS: PYRIDOXINE HCL 100 MG TAB PO SCH (08:46)
--- NOTE | 2017-08-01 08:57 | SOAPPROG ---
[facility]BIGN[facility] Progress Note Assessment/Plan: Assessment: 47 y/o M with a history of ESRD and secondary hyperparathyroidism s/p 3.5/4 parathyroidectomy POD#2 I think that he can wean from the calcium gluconate drip On calcium gluconate drip. I think that he can be weaned. I will discuss with nephrology Biopsy for parotid later LUE AVF revision at a later date S: Better today. Calm and cooperative. Pt denies numbness/tingling and pain. O: General: Pleasant, well-nourished and well-groomed man sitting on edge of bed, in chair. Neck: Mass behind Left ear. Incision cdi with minor swelling Left AVF with thrillTrachea midline, no cervical lymphadenopathy Lungs: Clear to auscultation bilaterally, No increased work of breathing Cardiac: Regular rate, no peripheral edema Plan: 08/01/17 08:52 Objective: Vital Signs Temp Pulse Resp BP Pulse Ox 37.0 C 77 16 132/76 H 94 08/01/17 04:00 08/01/17 04:00 08/01/17 04:00 08/01/17 04:00 08/01/17 04:00 Laboratory Results 08/01/17 03:32 08/01/17 03:15 07/31/17 08/01/17 08/02/17 05:59 05:59 05:59 Intake Total 1250 1480 Output Total 2000 Balance 1250 -520 PT 14.0 SEC (12.0-15.0) 07/28/17 09:10 INR 1.06 (0.83-1.16) 07/28/17 09:10 ICD10 Worksheet Patient Problems: Problems Problem Status Onset Abnormal exercise myocardial perfusion study Acute Coronary artery disease Acute ESRD (end stage renal disease) on dialysis Acute Status post six vessel coronary artery bypass graft Acute
[2017-08-01] MEDS ORDERED: CALCIUM CARBONATE 500 MG CHEWABLE TAB PO PRN (09:17)
[2017-08-01] MEDS ORDERED: CALCIUM CARBONATE 500 MG CHEWABLE TAB PO ONE (09:18)
[2017-08-01] MEDS: FUROSEMIDE 80 MG TAB PO SCH (09:51)
[2017-08-01] MEDS: LOSARTAN POTASSIUM 50 MG TAB PO SCH (09:58)
--- NOTE | 2017-08-01 10:30 | PDCARPN ---
Cardiology Progress Note Assessment/Plan: Assessment: CAD History, with previous bypass surgery 6 vessels in 2014 at [facility] , end-stage renal disease with IgA neuropathy, hypertension, hyperlipidemia who recently discovered hyperparathyroidism,and parathyroidectomy this hospitalization. Pre cardiac surgical evaluation cardiac catheterization stable. It showed severe multivessel disease with complete revascularization with patent OLIVARES to the LAD, patent SVGs to lateral inferior owen. Status post parathyroidectomy, cardiac monitoring showing sinus rhythm with occasional PVC, couplet, no other malignant arrhythmias or pauses noted. K of 5.4. Cr 7.5 post dialysis yesterday. Plan: 1. CAD: Recent catheterization showing total revascularization with grafts. He will continue on carvedilol. Aspirin is currently on hold due to recent surgery. Should be resumed when deemed safe by surgery. 2. End-stage renal disease: Dialysis yesterday. Potassium elevated at 5.4. Will defer to Nephrology regarding continuation of Cozaar and diuretic therapy. 3. Hyperparathyroidism: Day 2 postop parathyroidectomy. Ionized calcium being followed by Nephrology. 4. Hypertension: Blood pressure appears to be well controlled on Carvedilol and Cozaar. 5. Hyperlipidemia: Atorvastatin for secondary risk prevention. 6. Follow up with Cardiology in 2 weeks. Call [place] office and set up time with Nellie BROWN [phone] CARDIAC STABLE will sign off. Subjective: I feel better today. No chest pain or SOB. Reviewed/Discussed With: family Objective: Vital Signs (8 Hrs) Temp Pulse Resp BP Pulse Ox 08/01/17 08:54 36.8 C 78 132/70 H 98 08/01/17 04:00 37.0 C 77 16 132/76 H 94 Intake/Output (24 Hrs) 07/31/17 08/01/17 08/02/17 05:59 05:59 05:59 Intake Total 1250 1480 Output Total 1999 Balance 1250 -520 Intake: Oral (ml) 600 880 IV Intake (ml) 100 600 IV Infused (ml) 550 Calcium Gluconate 10 gm 500 In D5w 1,000 ml @ 50 mls/ hr IV CONT BEN Rx#: [id number] Calcium Gluconate 2 gm In 50 D5w 50 ml @ 140 mls/hr IV ONCE ONE Rx#: [id number] Output: Dialysis Fluid Removed 1999 Other: Weight 75.7 kg 74.9 kg Result Diagrams: 08/01/17 03:32 08/01/17 03:15 Telemetry: RSR 78 - Physical Exam Constitutional: no apparent distress Cardiovascular: regular rate and rhythm, no gallops, systolic murmur Peripheral Pulses: 2+: dorsalis-pedis (R), dorsalis-pedis (L) Respiratory: no wheezes, reduced air movement, inspiratory crackles Gastrointestinal: no tenderness Skin: warm, no edema Neurologic: AAOx3 Psychiatric: cooperative, interactive ICD10 Worksheet Patient Problems: Problems Problem Status Onset Abnormal exercise myocardial perfusion study Acute Coronary artery disease Acute ESRD (end stage renal disease) on dialysis Acute Status post six vessel coronary artery bypass graft Acute
[2017-08-01 13:47] VITALS: BP 140/64
[2017-08-01] MEDS ORDERED: CALCIUM CARBONATE 500 MG CHEWABLE TAB PO SCH (16:00)
--- NOTE | 2017-08-01 16:26 | GDS ---
[f rep st] DISCHARGE SUMMARY Please note, patient left against medical advice. DISCHARGE DIAGNOSES: 1. End-stage renal disease. 2. Tertiary hyperparathyroidism. 3. History of coronary disease. 4. History of IgA nephropathy. 5. Gout. HOSPITAL COURSE: Please see admission history and physical by Dr. Paris Tate. The patient pres ented after a screening angiogram prior to his parathyroidectomy. The angiogram was fine. He was ma intained on dialysis while here and underwent a parathyroidectomy on 07/30/2017. The patient did wel l with postoperative calcium management but became enwearied of waiting to leave, and ultimately, it was felt that he should continue to stay. He did not, and so he left against medical advice. He was advised to take Tums. /[id number]/MODL
--- NOTE | 2017-08-01 16:26 | ASMTLACE ---
LACE Length of stay for Answers: 4-6 days current admission Comorbidities - select Answers: Coronary Artery Disease all that apply Moderate or severe liver or renal disease Other Notes: HTN # of Emergency department Answers: 1-2 visits in the last 6 months Social determinants Answers: Mental health diagnosis (anxiety, depression, pers onality disorders, etc.) Score: 15 Date Signed: 08/01/2017 02:53 PM Electronically Signed By:Anisa Tran RN
--- NOTE | 2017-08-05 13:41 | ASDISCHSUM ---
Discharge Information Plan Status:Home with No Needs Medically Cleared to Leave: Discharge Date:08/01/2017 02:50 PM CM D/C Disposition:Against Medical Advice ADT D/C Disposition:Against Medical Advice Projected Discharge Date:08/01/2017 02:50 PM Transportation at D/C:Family Discharge Delay Reason: Follow-Up Date:08/01/2017 02:50 PM Discharge Slot: Final Diagnosis: Placement Information Patient Contact Information Contact Name:ALEX Relationship: Address:[address] City:[place] Alternate Phone: [facility]/Zip Code:[place] [address] Email: Financial Information Financial Class:Medicaid Primary Plan Desc:[employer] Primary Plan Number:[id number] Secondary Plan Desc: Secondary Plan Number: Assessment Information LACE LACE Length of stay for Answers: 4-6 days current admission Comorbidities - select Answers: Coronary Artery Disease all that apply Moderate or severe liver or renal disease Other Notes: HTN # of Emergency department Answers: 1-2 visits in the last 6 months Social determinants Answers: Mental health diagnosis (anxiety, depression, pers onality disorders, etc.) Score: 15 Date Signed: 08/01/2017 02:53 PM Electronically Signed By:Anisa Tran RN [facility] Initial CM Assessment Living Arrangements What is your living Answers: With Spouse arrangement? Who do you live with? Type Of Residence What kind of residence do Answers: Apartment you live in? Discharge Plan Comments Coordination Status Comments Notes: CM spoke w/ Dr. Muñoz and Ankita regarding d/c POC. Pt is having a parathyoidectomy tomorrow. Pt had a CATH yesterday. PT has been ordered and awaiting recommendations. [facility] [address] in [place]. CM to follow up with Kelly, his director of social services (P#: [phone]). CM to follow. Plan: TBD Date Signed: 07/29/2017 04:44 PM Electronically Signed By:SYLVIA Fritz [facility] CM Progress Note CM Note CM Note Notes: Pts case discussed in tx rounds in the AM. CM met w/ pt and for dispo planning. Pt and are in between homes at this time. Pt and stays at their sons place of business and sometimes w/ their daughter. is in the process of reinstating her SSDI and hopes to eventually getting a place of their own. CM left a msg for Kelly, pts case monitor at [facility]. is interested in signing up for [facility]. would like to be the dish up person. Her phone number is [phone]. Referral made to [facility]. CM provided w/ [facility] brochures. Pt will not have any dc needs at this time. CM and discussed different ways to stay med compliant. CM available for changes. Plan: Independent Date Signed: 07/31/2017 03:46 PM Electronically Signed By:SYLVIA Fritz Case Management Discharge Plan Note Case Management Discharge Discharge Order Complete? Answers: No Notes: left AMA Discharge Comments Notes: 08/01/2017 Case Management Note Pt left [facility] against medical advice. Date Signed: 08/01/2017 02:57 PM Electronically Signed By:Anisa Tran RN Intervention Information
== END 2017-08-01 14:50 | disposition left against medical advice (07) | DRG 447 ==
LOC: FCATH 08:21 → F2W 11:41 → OBSVTOIN 11:41 → F2W 15:06
PROVIDERS: ADMIT Internal Medicine Interventional Cardiology; ATTEND Internal Medicine
PROC: B2151ZZ Fluoroscopy of Left Heart using Low Osmolar Contrast (ICD-10-PCS; 2017-07-28)
PROC: B2111ZZ Fluoroscopy of Multiple Coronary Arteries using Low Osmolar Contrast (ICD-10-PCS; 2017-07-28)
PROC: B21F1ZZ Fluoroscopy of Other Bypass Graft using Low Osmolar Contrast (ICD-10-PCS; 2017-07-28)
PROC: B2181ZZ Fluoroscopy of Left Internal Mammary Bypass Graft using Low Osmolar Contrast (ICD-10-PCS; 2017-07-28)
PROC: 4A023N7 Measurement of Cardiac Sampling and Pressure, Left Heart, Percutaneous Approach (ICD-10-PCS; 2017-07-28)
PROC: 5A1D70Z Performance of Urinary Filtration, Intermittent, Less than 6 Hours Per Day (ICD-10-PCS; 2017-07-29)
PROC: 0GTP0ZZ Resection of Left Inferior Parathyroid Gland, Open Approach (ICD-10-PCS; principal; 2017-07-30 08:00)
PROC: 0GTL0ZZ Resection of Right Superior Parathyroid Gland, Open Approach (ICD-10-PCS; principal; 2017-07-30 08:00)
PROC: 0GTN0ZZ Resection of Right Inferior Parathyroid Gland, Open Approach (ICD-10-PCS; principal; 2017-07-30 08:00)
PROC: 0GBM0ZZ Excision of Left Superior Parathyroid Gland, Open Approach (ICD-10-PCS; principal; 2017-07-30 08:00)
DX: N25.81 Secondary hyperparathyroidism of renal origin (principal); N18.6 End stage renal disease; I12.0 Hypertensive chronic kidney disease with stage 5 chronic kidney disease or end stage renal disease; E87.5 Hyperkalemia; I25.10 Atherosclerotic heart disease of native coronary artery without angina pectoris; R22.1 Localized swelling, mass and lump, neck; F32.9 Major depressive disorder, single episode, unspecified; E78.5 Hyperlipidemia, unspecified; M10.9 Gout, unspecified; D63.1 Anemia in chronic kidney disease; Z95.1 Presence of aortocoronary bypass graft; Z99.2 Dependence on renal dialysis; Z59.0 Homelessness; Z01.810 Encounter for preprocedural cardiovascular examination
CPT/HCPCS: C1760; C1769; G0378; J0171; J0610; J0690; J0885; J1200; J1644; J2250; J2405; J2440; J2704; J2720; J3010; P9041; Q9967